=== PATIENT | male | born 1995 | race Caucasian/White ===

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

== ENCOUNTER 2017-02-09 18:12 | Emergency (ER) | payer MEDICAID, OTHER ==
[~2017-02-09] VITALS: Ht 172.7 cm; Wt 121.0 kg
[~2017-02-09 18:12] MED LIST changes: +ZOFR4TAB3 SL
[2017-02-09 18:13] VITALS: BP 145/92; PULSE 120; RESP 20; TEMP 98.7; O2SAT 97
[2017-02-09 18:20] VITALS: PULSE 92
--- NOTE | 2017-02-09 21:02 | PD ---
HPI Chief Complaint: Injury Time Seen by Provider: 20:58 Travel History International Travel<30 days: No Contact w/Intl Traveler<30days: No Traveled to known affect area: No History of Present Illness HPI 21-year-old [id number] white male presents to emergency department with complains of left index finger pain after having a hyperextension injury last evening. He states that he was repairing the alternator under his car when he had fallen down and hyperextending his index finger on the left hand. He's had pain in the MCP joint.. He denies any numbness or tingling. He does have some decreased strength due to pain. No other injuries. No prior injury. PFSH Past Medical History Medical History: Denies Significant Hx Cardiovascular Problems: Yes (HTN-CAN NOT AFFORD MEDS) Diminished Hearing: No Hypertension: Yes Tetanus Vaccination: < 5 Years Past Surgical History Surgical History: No Previous Surgery Social History Alcohol Use: No Tobacco Use: Yes Substance Use: No Allergies-Medications (Allergen,Severity, Reaction): Coded Allergies: Adderall (Verified Allergy, Severe, 10/07/16) Seroquel (Verified Allergy, Unknown, 10/07/16) Reported Meds & Prescriptions Reported Meds & Active Scripts Active Diclofenac Sodium DR (Diclofenac Sodium) 75 Mg Tabdr 75 Mg PO BID Review of Systems Except as stated in HPI: all other systems reviewed are Neg Physical Exam Narrative GENERAL: This is a well-nourished, well-developed patient, in no apparent distress. SKIN: No rashes, ecchymoses or lesions. Warm and dry. HEAD: Atraumatic. Normocephalic. EYES: PERRL, EOMI, no discharge or injection. No scleral icterus. EARS: Clear NOSE: Nasal turbinates appear normal. THROAT: Mucosa pink and moist. Airway patent. NECK: Trachea midline. supple, moves head freely. LUNGS: Clear to auscultation. CV: Regular in rhythm. ABDOMEN: Soft nontender. EXT: No clubbing cyanosis or edema. Examination of the left hand reveals pain in the second MCP joint. There is no edema. The skin is intact. He is able to fully extend and has nearly full flexion. Good scrub nurse. Remainder hand is unremarkable. He has intact sensation with good Refill Data Data Last Documented VS Vital Signs Date Time Temp Pulse Resp B/P Pulse Ox O2 Delivery O2 Flow Rate FiO2 02/09/17 18:20 92 02/09/17 18:13 98.7 20 145/92 97 Room Air Orders Finger ([id number]) (02/09/17 20:51) Ibuprofen (Motrin) (02/09/17 21:15) MDM Medical Decision Making Medical Screen Exam Complete: Yes Emergency Medical Condition: Yes Medical Record Reviewed: Yes Interpretation(s) Last 24 hours Impressions Finger X-Ray 02/09/172050 Signed Impressions: Service Date/Time: Thursday, February 09, 2017 21:18 - CONCLUSION: Intact pointer finger. Shaka Fulton MD Left index finger: Negative for acute fracture. Differential Diagnosis MDM: High Differential diagnoses: Fracture, sprain, strain, dislocation, contusion, neurovascular injury Narrative Course X-ray of the left index finger is negative for bony injury. Patient's given Motrin 800 mg by mouth. This is left index finger MCP sprain Diagnosis Primary Impression: Sprain of metacarpophalangeal joint of left index finger Patient Instructions: General Instructions Departure Forms: Tests/Procedures, Work Release Special Instructions: No lifting greater than 5 pounds with the left hand for 5 days. No repetitive gripping or climbing 5 days. Additional Instructions: Rest. Elevation. Limited use of the hand as tolerated. Ice for any acute swelling and pain. Diclofenac. Follow-up with orthopedist or a primary care doctor in 1 week. Return to the ER for any problems. Med/Other Pt SpecificInfo: Prescription(s) given Scripts Diclofenac Sodium DR 75 Mg Tabdr75 Mg PO BID #20 TAB Prov:Dean Chacon MD 02/09/17 Disposition: 01 DISCHARGE HOME Condition: Stable RiosMohan sheldon Feb 09, 2017 21:02
[2017-02-09] MEDS ORDERED: DICL75TA PO (21:03)
[2017-02-09] MEDS ORDERED: IBUPROFEN 800 MG TAB PO ONE (21:15)
--- NOTE | 2017-02-09 21:21 | RADRPT ---
EXAM DATE/TIME: 02/09/2017 21:18 [facility] COMPARISON: No previous studies available for comparison. INDICATIONS : Left second digit pain after patient jammed finger working on a car today MEDICAL HISTORY : None. SURGICAL HISTORY : None. ENCOUNTER: Initial ACUITY: 1 day PAIN SCORE: 8/10 LOCATION: Left entire 2nd digit FINDINGS: Examination of the second digit of the left hand demonstrates no evidence of fracture or dislocation. No radiopaque foreign bodies are seen. The soft tissues are intact. CONCLUSION: Intact pointer finger. Shaka Fulton MD on February 09, 2017 at 21:18 Board Certified Radiologist. This report was verified electronically.
== END 2017-02-09 21:42 | disposition home or self-care (01) ==
LOC: NEPK 18:12
DX: S63.651A Sprain of metacarpophalangeal joint of left index finger, initial encounter (principal); I10 Essential (primary) hypertension; W19.XXXA Unspecified fall, initial encounter; Z72.0 Tobacco use
CPT/HCPCS: 73140; 99283